=== PATIENT | female | born 1985 | race Caucasian/White ===

== ENCOUNTER → 2017-07-27 | Outpatient (CLI) | payer OTHER ==
[~2017-07-27] MED LIST: ALBU90I INH; ALBU90OI INH; ALBU90OI61 INH; AMOX500 PO; ASCO500 PO; Amoxicillin500 MG PO; CEPH500 PO; CIPR500 PO; CODGUAEL PO; CYCL10 PO; Crutch1 EACH MISC; DIPATR PO; DIPH50 PO; DOXY100 PO; HYDACE5 PO; HYDACE5325 PO; HYDHCL25 PO; HYDR120LO TOP; HYDR1TAB94 PO; IBUP600; IBUP600 PO; IBUP800 PO; LORA10ER PO; MEDR150I; Monodox100 MG PO; Naprosyn500 MG PO; Norco 10-325 T1 EACH PO; PARO20 PO; PENVK500 PO; POLTRIOPSO OU; PRED10 PO; PRED20 PO; Prednisone20 MG PO; RXIBUP800 PO; RXTRAM50 PO; SULTRIDS PO; TRAM50 PO; Veetids 500500 MG PO; Zofran Odt4 MG PO
[2017-07-31 23:10] LABS: CHLAMYDIA TRACHOMATIS, NAA Negative (Negative); NEISSERIA GONORRHOEAE, NAA Negative (Negative)
== END ==
LOC: LAB SRC 13:47 → LAB SHORT 13:47
PROVIDERS: Nurse Practitioner Family
DX: Z72.51 High risk heterosexual behavior (principal); Z20.2 Contact with and (suspected) exposure to infections with a predominantly sexual mode of transmission
CPT/HCPCS: 87491; 87591

== ENCOUNTER 2019-07-18 15:53 | Emergency (ER) | payer OTHER ==
[~2019-07-18] VITALS: Ht 162.6 cm; Wt 84.4 kg
== END 2019-07-18 18:48 | disposition home or self-care (01) ==
LOC: ER 15:53
DX: M25.561 Pain in right knee (principal); F17.210 Nicotine dependence, cigarettes, uncomplicated
CPT/HCPCS: 73564; 93926; 96374-59; 96375; 99284-25; J1885; J3010